=== PATIENT | female | born 2005 | race Caucasian/White ===

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

== ENCOUNTER 2023-09-26 15:12 | Emergency (ER) | payer OTHER, SELFPAY ==
--- NOTE | ~2023-09-26 | CT_ITS ---
EXAMINATION: CT brain wo con DATE: 09/26/2023 18:17 INDICATION: Head injury. Loss of consciousness. TECHNIQUE: Computed tomography (CT) of the head was performed without intravenous contrast. The mA wa s adjusted according to patient size. Iterative reconstruction technique was employed. The dose-lengt h product was 529.67 mGy-cm. COMPARISON: None FINDINGS: There is no intracranial hemorrhage, acute infarction, or abnormal intracranial mass lesion . The ventricles are normal in size. There is mild mucosal thickening in the ethmoid sinuses. The orb its are normal. The mastoid air cells are normal. IMPRESSION: 1. Normal brain. Reviewed, dictated and finalized at location E. IMPRESSION: 1. Normal brain.
--- NOTE | ~2023-09-26 | XR_ITS ---
EXAMINATION: XR knee LT 3V DATE: 09/26/2023 18:13 INDICATION: Fall. TECHNIQUE: 3 views of left knee were obtained. COMPARISON: None. FINDINGS: Bone alignment is normal. No fracture. Joint spaces are normal. No knee joint effusion. The re is anterior soft tissue swelling. IMPRESSION: 1. No fracture. Reviewed, dictated and finalized at location E. IMPRESSION: 1. No fracture.
--- NOTE | ~2023-09-26 | XR_ITS ---
EXAMINATION: XR shoulder LT min 2V DATE: 09/26/2023 18:13 INDICATION: Fall. TECHNIQUE: 4 views of left shoulder were obtained. COMPARISON: None. FINDINGS: Bone alignment is normal. No fracture. Joint spaces are normal. IMPRESSION: 1. Normal left shoulder. Reviewed, dictated and finalized at location E. IMPRESSION: 1. Normal left shoulder.
--- NOTE | ~2023-09-26 | XR_ITS ---
EXAMINATION: XR clavicle LT DATE: 09/26/2023 18:13 INDICATION: Fall. TECHNIQUE: 2 views of left clavicle were obtained. COMPARISON: None. FINDINGS: Bone alignment is normal. No fracture. Coracoclavicular interval is normal. Joint spaces ar e normal. IMPRESSION: 1. Normal left clavicle. Reviewed, dictated and finalized at location E. IMPRESSION: 1. Normal left clavicle.
[2023-09-26 15:24] VITALS: BP 134/73; PULSE 76; RESP 18; TEMP 36.9; O2SAT 100
--- NOTE | 2023-09-26 17:58 | ED.FALL ---
HPI - Fall General Chief Complaint: Fall Stated Complaint: fall Time Seen by Provider: 09/26/23 17:02 Source: patient Mode of arrival: ambulatory Limitations: no limitations History of Present Illness HPI Narrative: This is a 17-year-old female who presents to the ED for chief complaint of injury with fall that occurred yesterday afternoon. Patient works at a [employer] and was walking a dog when this happen. She reports the dog started to run and she tripped over the curb. She struck the ground, landing primarily on her left clavicle and left knee. She reports she may have passed out at that time. No subsequent syncope since then. Denies any numbness or weakness of the extremities, speech change or vision change. Endorses pain to the left shoulder, left knee and mild headache. Denies nausea,, neck pain, low back pain or any further site of injury. Related Data Home Medications Medication Instructions Recorded Confirmed methylphenidate HCl 20 mg biphasic ea PO 11/14/21 30-70 capsule,extended release Allergies Allergy/AdvReac Type Severity Reaction Status Date / Time No Known Allergies Allergy Mild Verified 09/26/23 16:54 Review of Systems Review of Systems: All systems as dictated in [facility] Past Medical History Medical History (Updated 09/26/23 @ 18:29 by Seth Charles PA-C) Patient denies significant medical history Exam Narrative: GENERAL: Well-appearing, well-nourished, and in no acute distress. HEAD: Normocephalic, atraumatic. EYES: PERRLA and EOMI. ENT: Nares clear, no rhinorrhea or epistaxis. Mucous membranes moist. Oropharynx without tonsillar hypertrophy exudate or other lesions. NECK: Supple. No adenopathy or masses. No midline spinal tenderness to the cervical or thoracic spine CHEST: No respiratory distress. Clear to auscultation. No wheezes rales or rhonchi HEART: Regular rate and rhythm. No murmur heard. Normal peripheral pulses. ABDOMEN: Soft, nontender, nondistended, normal active bowel sounds. MSK: LUE: Mild tenderness throughout the left shoulder. Difficulty with active range of motion of the left shoulder. Neurovascular intact distally. Soft compartments RUE: Benign LLE: Mild tenderness of bruising to the patella of the left knee. Full range of motion. Neurovascular intact distally. Soft compartments RLE: benign SKIN: Warm, dry, no rash. Ecchymosis to knee. NEURO: Alert and oriented x3. No focal deficits. PSYCH: Normal mood and affect. Course Vital Signs Vital signs: Vital Signs Temperature 98.4 F 09/26/23 15:24 Pulse Rate 76 09/26/23 15:24 Respiratory Rate 18 09/26/23 15:24 Blood Pressure 134/73 09/26/23 15:24 Pulse Oximetry 100 09/26/23 15:24 Temperature 98.1 F 09/26/23 18:36 Pulse Rate 67 09/26/23 18:36 Respiratory Rate 15 09/26/23 18:36 Blood Pressure 119/72 09/26/23 18:36 Pulse Oximetry 100 09/26/23 18:36 MDM - Fall MDM Narrative Medical decision making narrative: This is a 17-year-old female who presents to the ED with chief complaint of injury while running with dogs yesterday. She tripped on the curb and injured her left shoulder, left knee. Vitals are normal. Exam remarkable for the above. Imaging of the brain, left knee, left shoulder and left clavicle are all unremarkable. Symptoms and presentation consistent with contusions/musculoskeletal strains. Pt will be discharged in stable condition. Return precautions given and supportive measures discussed. Pt is understanding and agreeable with plan for discharge and follow-up with PCP. Discharge Plan Discharge Clinical Impression: Injury of left shoulder, Traumatic ecchymosis of knee Patient Disposition: Home, Self-Care Condition: Stable Instructions: Antibiotic Form Additional Instructions: Your exam and imaging today are reassuring overall. No broken bones or abnormal findings on the brain scan. Follow-up closely with your doct
[2023-09-26] MEDS: ACETAMINOPHEN 325 MG TABLET 650 MG PO (18:21)
[2023-09-26] MEDS: IBUPROFEN 400 MG TABLET 800 MG PO (18:22)
[2023-09-26 18:36] VITALS: BP 119/72; PULSE 67; RESP 15; TEMP 36.7; O2SAT 100
== END 2023-09-26 18:37 | disposition home or self-care (01) ==
PROVIDERS: Emergency Provider Physician Assistant
DX: S80.02XA Contusion of left knee, initial encounter (principal); S49.92XA Unspecified injury of left shoulder and upper arm, initial encounter; W10.1XXA Fall (on)(from) sidewalk curb, initial encounter; Y93.K1 Activity, walking an animal
CPT/HCPCS: 70450; 73000; 73030; 73562; 99284; A9270

== ENCOUNTER 2023-10-29 07:45 | Emergency (ER) | payer OTHER, SELFPAY ==
--- NOTE | ~2023-10-29 | CT_ITS ---
Non-contrast CT scan of the Abdomen and Pelvis Clinical indication: Kidney stone Technique: 2.5 mm axial scans were obtained through the abdomen and pelvis without intravenous or or al contrast. Dose reduction technique was used on this scan by utilizing automated exposure control a nd iterative reconstruction technique. The dose-length product (DLP) was 208.46 mGy-cm. COMPARISON: 11/14/2021 Findings: Images through the lung bases reveal no abnormalities. There is no evidence of renal or ureteral calculi. The kidneys and the ureters are nondilated. The liver, spleen, pancreas, gallbladder, and adrenals appear normal. There is no aortic aneurysm. There is no evidence of bowel obstruction. Normal appendix Images through the pelvis were performed. There is small amount of pelvic free fluid. Urinary bladder unremarkable. No pelvic mass evident. Impression: Small amount of pelvic free fluid, nonspecific. Consider ruptured ovarian cyst. No renal stone, ureteral stone, or hydronephrosis. Reviewed, dictated and finalized at location . Impression: Small amount of pelvic free fluid, nonspecific. Consider ruptured ovarian cyst. No renal stone, ureteral stone, or hydronephrosis.
[2023-10-29 07:54] VITALS: BP 120/85; PULSE 60; RESP 18; TEMP 36.4; O2SAT 100
[2023-10-29] MEDS: KETOROLAC 30 MG/ML VIAL (*BKC) IV PUSH (08:05)
[2023-10-29] MEDS: SODIUM CHLORIDE 0.9% IV 1,000 ML 999 ML IV CONT (08:05)
[2023-10-29] MEDS: ONDANSETRON INJ 4 MG/2 ML VIAL IV PUSH (08:05)
[2023-10-29 08:14] LABS: Basophils Percent Auto 0.4 % (0.2-1.2); Eosinophils Percent Auto 0.4 % (0-4.4); Hemoglobin 13.9 g/dL (12.0-15.0); Immature Granulocyte Absolute 0.02 K/mm3 (0.00-0.031); Immature Granulocyte Percent A 0.2 % (0-0.5); Lymphocytes Absolute Auto 1.77 K/mm3 (0.9-3.2); Lymphocytes Percent Auto 19.5 % (18.3-44.2); Mean Corpuscular HGB Conc 33.9 g/dl (32-36); Mean Corpuscular Hemoglobin 30.8 pg (26-34); Mean Corpuscular Volume 90.7 fl (80-100); Mean Platelet Volume 9.4 fl (7.4-10.4); Monocytes Absolute Auto 0.6 K/mm3 (0.1-0.6); Monocytes Percent Auto 6.7 % (2.6-8.5); Neutrophils Absolute Auto 6.6 K/mm3 (1.3-6.7); Neutrophils Percent Auto 72.8 % (45.5-73.1); Platelet Count Result 274 k/mm3 (150-375); Red Blood Count 4.52 M/mm3 (4.2-5.4); Red Cell Distribution Width 11.9 % (11.5-14.5); White Blood Count 9.1 K/mm3 (4.5-10.0)
[2023-10-29 08:33] LABS: Alanine Aminotransferase 14 U/L (6-35); Alkaline Phosphatase 63 U/L (45-116); Anion Gap 9 mmol/L (4-12); Aspartate Amino Transferase 27 U/L (14-36); Bilirubin,Total 3.4 mg/dL (0.2-1.3); Blood Urea Nitrogen 8 mg/dL (8-21); Calcium 9.8 mg/dL (8.9-10.7); Carbon Dioxide 24 mmol/L (22-30); Chloride 107 mmol/L (98-107); Estimated CRCL calculation 110 ml/min; Estimated Glomerular Filt Rate > 60; Glucose 99 mg/dL (65-110); Lipase 118 U/L (23-300); Potassium 3.8 mmol/L (3.4-5.0); Sodium 140 mmol/L (134-143)
[2023-10-29 09:22] LABS: Appearance Urine Turbid (Clear); Bacteria Urine 4+ /hpf; Bilirubin Urine 1+ (Negative); Blood Urine Negative (Negative); Color Urine Dark Yellow (Yellow); Glucose Urine UA Negative (Negative); Ketones Urine Trace mg/dL (Negative); Leukocyte Esterase Ur 2+ LEU/UL (Negative); Nitrate Urine Positive (Negative); Non Pathogenic Casts 0-2; Protein Urine 2+ mg/dL (Negative); RBC Urine 0-2 /hpf (0-2); Squamous Epithelial Cell Urine Many /hpf (Few); WBC Urine >100 /hpf (0-3); pH Urine 5.5 (5.0-9.0)
[2023-10-29 09:24] LABS: Specific Grav Ur 1.041 (1.001-1.035)
[2023-10-29 09:25] LABS: Add Urine Microscopic? YES
[2023-10-29] MEDS: MORPHINE SULFATE (*CRX) 4 MG/ML INJ IV PUSH (10:56)
[2023-10-29 11:21] VITALS: BP 112/61; PULSE 55; RESP 16; O2SAT 99
--- NOTE | 2023-10-29 11:47 | ED.ABDPAIN ---
HPI - Abdominal Pain General Chief Complaint: Abdominal Pain Stated Complaint: pain in lower abd, uterus, and lower back Time Seen by Provider: 10/29/23 07:54 Source: patient and family Mode of arrival: ambulatory Limitations: no limitations History of Present Illness HPI narrative: 17-year-old here with a complaint of lower abdominal pain associated with nausea and vomiting, since last night. Patient was recently diagnosed with UTI was started on nitrofurantoin. She states the pain is quite intense as this morning radiating into her right flank area no history of fever or chills. Denies any vaginal bleeding or discharge. MD elicited complaint: abdominal pain Pertinent past history: past UTI Onset (ago): day(s) (2) Location: suprapubic Severity: moderate Quality: aching Exacerbating factors: nothing Relieving factors: nothing Associated symptoms: denies other symptoms Related Data Home Medications Medication Instructions Recorded Confirmed methylphenidate HCl 20 mg biphasic ea PO 11/14/21 30-70 capsule,extended release Allergies Allergy/AdvReac Type Severity Reaction Status Date / Time No Known Allergies Allergy Mild Verified 10/29/23 07:59 Review of Systems Review of Systems: All systems reviewed & are unremarkable except as noted in HPI and below Constitutional: Constitutional: Reports no additional constitutional complaints Eyes: Eyes: Reports no additional eye complaints ENT: Reports system reviewed and no additional complaints, except as documented Cardiovascular: Cardiovascular: Reports no additional cardiovascular complaints Respiratory: Respiratory: Reports no additional respiratory complaints Gastrointestinal: Gastrointestinal: Reports as per HPI Genitourinary: Genitourinary: Reports as per HPI Musculoskeletal: Musculoskeletal: Reports no additional musculoskeletal complaints Integumentary/Breasts: Skin/Breast: Reports system reviewed and no additional complaints, except as docu PMFSH Past Medical History Medical History (Updated 10/29/23 @ 11:49 by Andrew Marrero MD) Patient denies significant medical history Exam Narrative: GENERAL: Well-appearing, well-nourished, and in no acute distress. HEAD: Normocephalic, atraumatic. EYES: PERRLA and EOMI. ENT: Nares clear, no rhinorrhea or epistaxis. Mucous membranes moist. NECK: Supple. CHEST: Clear to auscultation. No respiratory distress. HEART: Regular rate and rhythm. No murmur heard. Normal peripheral pulses. ABDOMEN: Soft, suprapubic tenderness, nondistended, normal active bowel sounds. EXTREMITIES: Normal range of motion. No edema. SKIN: Warm, dry, no rash. NEURO: No focal deficits. Alert and oriented x3. PSYCH: Normal mood and affect. Course Course Emergency Course: Patient was given IV Toradol and morphine her pain is much improved head did inform her and her mother about the lab work, CT findings. Advised her to take Bactrim for her UTI will give her Zofran for her nausea control. Recommended her to follow-up with her primary doctor. Vital Signs Vital signs: Vital Signs Temperature 36.4 C 10/29/23 07:54 Pulse Rate 60 10/29/23 07:54 Respiratory Rate 18 10/29/23 07:54 Blood Pressure 120/85 10/29/23 07:54 Pulse Oximetry 100 10/29/23 07:54 Oxygen Delivery Room Air 10/29/23 07:54 Temperature 36.4 C 10/29/23 07:54 Pulse Rate 55 L 10/29/23 11:21 Respiratory Rate 16 10/29/23 11:21 Blood Pressure 112/61 10/29/23 11:21 Pulse Oximetry 99 10/29/23 11:21 Oxygen Delivery Room Air 10/29/23 07:54 MDM - Abdominal Pain Lab Data 10/29/23 08:06 10/29/23 08:07 Labs: Lab Results 10/29/23 10/29/23 10/29/23 Range/Units 08:06 08:07 09:13 WBC 9.1 (4.5-10.0) K/mm3 RBC 4.52 (4.2-5.4) M/mm3 Hgb 13.9 (12.0-15.0) g/dL Hct 41.0 (37.0-47.0) % MCV 90.7 (80-100) fl MCH 30.8 (26-34) pg MCHC 33.9 (32-36) g/dl RD
== END 2023-10-29 12:18 | disposition home or self-care (01) ==
PROVIDERS: Emergency Provider Family Medicine
DX: N83.201 Unspecified ovarian cyst, right side (principal); N39.0 Urinary tract infection, site not specified
CPT/HCPCS: 36415; 74176; 80053; 81001; 81025; 83690; 85025; 87086; 96361; 96365; 96375; 99284; J0696; J1885; J2270; J2405; J7030

== ENCOUNTER 2023-11-24 08:51 | Outpatient (CLI) | payer OTHER, SELFPAY ==
--- NOTE | ~2023-11-24 | US_ITS ---
US right upper quadrant INDICATION: Abdomen pain. Reflux. PROCEDURE: Realtime right upper abdominal ultrasound. COMPARISON: No prior studies for comparison. FINDINGS: The pancreas is normal without focal mass or pancreatic ductal dilation. Liver echotexture is normal without focal mass or intrahepatic biliary dilatation. There is normal directional flow i n the portal vein. The gallbladder is normal without stones, gallbladder wall thickening or pericholecystic fluid. Comm on bile duct measures 3 mm. No sonographic Bates's sign. IMPRESSION: 1: Normal limited abdominal ultrasound. Reviewed, dictated and finalized at location B.
== END 2023-11-24 08:52 ==
PROVIDERS: PCP Internal Medicine; Visit Provider Internal Medicine
DX: R10.9 Unspecified abdominal pain (principal)
CPT/HCPCS: 76705